=== PATIENT | female | born 1950 ===

== ENCOUNTER 2018-05-17 09:38 | Emergency (ER) | payer OTHER ==
[2018-05-17 09:44] VITALS: BMI 29.2
[2018-05-17 09:48] VITALS: BP 144/85; PULSE 87; RESP 18; TEMP 97.3; O2SAT 97
[2018-05-17 10:20] LABS: SQUAMOUS EPITHIAL 11 /hpf (0-5); URINE BACTERIA OCC (<OCC)
[2018-05-17 10:21] LABS: URINE BILIRUBIN NEGATIVE (NEGATIVE); URINE CLARITY Clear (Clear); URINE COLOR YELLOW (YELLOW); URINE GLUCOSE (UA) NEGATIVE (Normal)
[2018-05-17 10:22] LABS: PH,URINE 6.5 (5.0-8.0); URINE BLOOD NEGATIVE (NEGATIVE); URINE LEUKOCYTE ESTERASE SMALL Leu/uL (Negative); URINE PROTEIN NEGATIVE (NEGATIVE); URINE UROBILINOGEN 0.2 mg/dL (0.2-1.0)
--- NOTE | 2018-05-17 10:49 | C.PDOC ---
History Of Present Illness 67 year old female, whose past medical history includes gout, hypertension and asthma, presents to the ED for evaluation of suprapubic abdominal pain and vaginal spotting which began yesterday. Patient also reports associated dysuria and urinary frequency. She denies fever, chills, and does not offer any other complaints at this time. Time Seen by Provider: 05/17/18 09:48 Chief Complaint (Nursing): Female Genitourinary History Per: Patient History/Exam Limitations: no limitations Onset/Duration Of Symptoms: Hrs Current Symptoms Are (Timing): Still Present Quality Of Discomfort: "Pain" Associated Symptoms: Urinary Symptoms (dysuria, urinary frequency ). denies: Fever, Chills Additional History Per: Patient Abnormal Vaginal Bleeding: Yes Past Medical History Reviewed: Historical Data, Nursing Documentation, Vital Signs Vital Signs: Last Vital Signs Temp 97.3 F L 05/17/18 09:45 Pulse 87 05/17/18 09:45 Resp 18 05/17/18 09:45 BP 144/85 05/17/18 09:45 Pulse Ox 97 05/17/18 09:45 - Medical History PMH: Asthma, HTN Surgical History: No Surg Hx Family History: States: Unknown Family Hx - Social History Hx Alcohol Use: No Hx Substance Use: No - Immunization History Hx Tetanus Toxoid Vaccination: No Hx Influenza Vaccination: No Hx Pneumococcal Vaccination: No Review Of Systems Constitutional: Negative for: Fever, Chills Gastrointestinal: Positive for: Abdominal Pain (suprapubic ) Genitourinary: Positive for: Dysuria, Frequency, Other (vaginal spotting ) Physical Exam - Physical Exam Appears: Non-toxic, No Acute Distress Skin: Normal Color, Warm, Dry Head: Atraumatic, Normacephalic Eye(s): bilateral: Normal Inspection Oral Mucosa: Moist Neck: Supple Chest: Symmetrical, No Deformity, No Tenderness Cardiovascular: Rhythm Regular, No Murmur Respiratory: Normal Breath Sounds, No Rales, No Rhonchi, No Wheezing Gastrointestinal/Abdominal: Soft, Tenderness (suprapubic ), No Guarding, No Rebound Extremity: Normal ROM, Capillary Refill (less than 2 seconds ) Neurological/Psych: Oriented x3, Normal Speech, Normal Cognition ED Course And Treatment - Laboratory Results Lab Results: Urine Color Yellow (YELLOW) 05/17/18 10:09 Urine Clarity Clear (Clear) 05/17/18 10:09 Urine pH 6.5 (5.0-8.0) 05/17/18 10:09 Ur Specific [place] 1.020 (1.003-1.030) 05/17/18 10:09 Urine Protein Negative mg/dL (NEGATIVE) 05/17/18 10:09 Urine Glucose (UA) Negative mg/dL (Normal) 05/17/18 10:09 Urine Ketones Negative mg/dL (NEGATIVE) 05/17/18 10:09 Urine Blood Negative (NEGATIVE) 05/17/18 10:09 Urine Nitrate Negative (NEGATIVE) 05/17/18 10:09 Urine Bilirubin Negative (NEGATIVE) 05/17/18 10:09 Urine Urobilinogen 0.2 mg/dL (0.2-1.0) 05/17/18 10:09 Ur Leukocyte Esterase Small Gaby/uL (Negative) 05/17/18 10:09 Urine WBC (Auto) 11 /hpf (0-5) H 05/17/18 10:09 Urine RBC (Auto) 2 /hpf (0-3) 05/17/18 10:09 Ur Squamous Epith Cells 11 /hpf (0-5) H 05/17/18 10:09 Urine Bacteria Occ (<OCC) H 05/17/18 10:09 O2 Sat by Pulse Oximetry: 97 (on RA) Pulse Ox Interpretation: Normal Medical Decision Making Medical Decision Making: Impression: hematuria, will rule urinary tract infection Plan: * urine culture * urinalysis * reassess and disposition Progress: Urine culture obtained. Urinalysis ordered and reviewed, is positive for a urinary tract infection. On reassessment, patient is resting comfortably, showing no signs of distress and is stable for discharge. Patient will be given a prescription for Macrobid and is advised to follow up with her PMD/clinic within 1-2 days for further evaluation. Disposition - Disposition Referrals: [facility] [place] [Outside] [facility] [Outside] [facility] [place] [Outside] Disposition: HOME/ ROUTINE Disposition Time: 10:40 Condition: GOOD Additional Instructions: Follow up with your pcp and take macrobid as directed. Prescriptions: Nitrofurantoin Macrocrystals [Macrobid] 100 mg PO BID #14 cap Instructions: Urinary Tract Infections in Adults Forms: Work/School/Gym Excuse, [facility] (Spanish) - Clinical Impression Clinical Impression: Urinary tract infection - Scribe Statement The provider has reviewed the documentation as recorded by the Scribe (Marcela Duarte) Provider Attestation: All medical record entries made by the Scribe were at my direction and personally dictated by me. I have reviewed the chart and agree that the record accurately reflects my personal performance of the history, physical exam, medical decision making, and the department course for this patient. I have also personally directed, reviewed, and agree with the discharge instructions and disposition.
== END 2018-05-17 10:41 | disposition home or self-care (01) ==
LOC: C.ER 09:38
DX: N39.0 Urinary tract infection, site not specified (principal); I10 Essential (primary) hypertension